=== PATIENT | male | born 1955 | race Caucasian/White ===

== ENCOUNTER → 2017-03-15 | Day surgery (SDC) | payer BC ==
[~2017-03-15] VITALS: Ht 185.4 cm; Wt 109.0 kg
[~2017-03-15] MED LIST: AMIO200T4 PO; APIX1TAB3 PO; CARV25TA PO; LISI-725 PO; MELA1TAB5 PO; MGNG500 PO; SUCR1TAB29 PO
[2017-03-15 14:39] VITALS: BP 146/102; PULSE 95; TEMP 36.7; O2SAT 98; Ht 185.4 cm; Wt 109.0 kg
[2017-03-15 15:11] VITALS: BP 156/106; PULSE 92; O2SAT 100
[2017-03-15 15:16] VITALS: BP 115/78; PULSE 92; O2SAT 100
[2017-03-15 15:20] VITALS: BP 121/77; PULSE 92; O2SAT 98
[2017-03-15 16:15] VITALS: BP 148/96; PULSE 54; O2SAT 96
--- NOTE | 2017-03-15 16:45 | Discharge Instructions ---
Discharge Instructions Date of Service March 15, 2017. Admission Reason for Admission: A-Fib *Dr Black Doing* *Anethesia Notified* Discharge Discharge Diagnosis / Problem: CVN Discharge Goals Goal(s): Improve disease control Activity Recommendations Activity Limitations: resume your previous activity . Instructions / Follow-Up Instructions / Follow-Up ACTIVITY RECOMMENDATIONS: * May resume driving tomorrow. SPECIAL CARE: * May apply burn ointment for skin irritation. * Please contact physician for any lightheadedness, dizziness or palpitations. Current Hospital Diet Patient's current hospital diet: Discharge Diet Recommended Diet: Regular Diet Pending Studies Studies pending at discharge: no Medical Emergencies . Who to Call and When: Medical Emergencies: If at any time you feel your situation is an emergency, please call 911 immediately. . Non-Emergent Contact Non-Emergency issues call your: Primary Care Provider . . "Provider Documentation" section prepared by Santhosh Timmons. . VTE Core Measure Inpt VTE Proph given/why not?: Other Anticoagulation
--- NOTE | 2017-03-15 17:55 | Anesthesiology Progress Note ---
Anesthesia Post Op Note Date & Time March 15, 2017 at 17:55 Vital Signs Pain Intensity: 0 Vital Signs Past 12 Hours Date Time Temp Pulse Resp B/P Pulse Ox O2 Delivery O2 Flow Rate FiO2 03/15/17 16:15 54 18 148/96 96 Room Air 03/15/17 16:00 52 18 139/88 95 Room Air 03/15/17 15:50 55 18 127/79 95 Room Air 03/15/17 15:40 57 18 128/82 95 Room Air 03/15/17 15:30 56 18 94/74 98 Room Air 03/15/17 15:20 92 18 121/77 98 Room Air 03/15/17 15:16 92 18 115/78 100 Nasal Cannula 4 03/15/17 15:11 92 18 156/106 100 Nasal Cannula 4 03/15/17 14:39 36.7 95 18 146/102 98 Room Air Notes Mental Status: alert / awake / arousable, participated in evaluation Pt Amnestic to Procedure: Yes Nausea / Vomiting: adequately controlled Pain: adequately controlled Airway Patency, RR, SpO2: stable & adequate BP & HR: stable & adequate Hydration State: stable & adequate Anesthetic Complications: no major complications apparent
--- NOTE | 2017-04-08 21:52 | OPERATIVE REPORT ---
DATE OF OPERATION: 03/18/2017 INDICATIONS FOR CARDIOVERSION: Persistent atrial fibrillation post-ablation. 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 He has tried antiarrhythmic therapy and has also tried rate control, however, ended up having ablation at [facility] about 2 weeks ago. He had an episode of atrial fibrillation lasting several hours and spontaneously converting to sinus rhythm, but has had return of his symptoms. He therefore was brought to laboratory for cardioversion in order to maintain sinus rhythm following ablation. DESCRIPTION OF PROCEDURE: After obtaining informed consent for the procedure, he was brought to the laboratory on the morning of 03/15/2017 being n.p.o. after midnight. He was identified in the laboratory, connected to the recording apparatus and anteroposterior patch electrodes were placed. He was anesthetized using propofol anesthetic delivered by the anesthesia department. Once adequate anesthesia was obtained, cardioversion was performed using a single 200 joule synchronized biphasic shock. This converted the rhythm to sinus. The patient tolerated the procedure well, awoke uneventfully from the anesthetic, was observed briefly and discharged. MAGO
== END | disposition home or self-care (01) ==
LOC: C.CATH 14:18
PROVIDERS: ATTEND Internal Medicine Clinical Cardiac Electrophysiology
DX: I48.1 Persistent atrial fibrillation (principal); E83.42 Hypomagnesemia; I10 Essential (primary) hypertension; F41.9 Anxiety disorder, unspecified; I42.8 Other cardiomyopathies; Z79.01 Long term (current) use of anticoagulants; Z82.49 Family history of ischemic heart disease and other diseases of the circulatory system; Z81.1 Family history of alcohol abuse and dependence

== ENCOUNTER → 2018-02-24 | Outpatient (CLI) | payer BC ==
[~2018-02-24] MED LIST changes: -CARV25TA PO
--- NOTE | 2018-02-24 08:35 | DIAGNOSTIC IMAGING REPORT ---
ULTRASOUND OF THE ABDOMINAL AORTA CLINICAL HISTORY: Aneurysm screening. COMPARISON STUDY: No priors. TECHNIQUE: Multiple francis scale, color Doppler, and spectral Doppler sonograms of the abdominal aorta and iliac arteries are performed. Images are reviewed in the transverse and longitudinal planes. FINDINGS: There is mild to moderate atherosclerotic calcification and irregularity noted throughout the abdominal aorta. 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 The mid abdominal aorta measures 2.7 x 2.9 cm and the distal abdominal aorta is ectatic measuring 2.8 x 2.9 cm. The right common iliac artery measures up to 1.5 cm and the left common iliac artery measures up to 1.4 cm. Normal flow and spectral Doppler waveforms are seen within the aorta and pelvic arteries. IMPRESSION: 1. 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 2. There is ectasia of the mid to distal abdominal aorta as well as the iliac arteries. Electronically signed by: John Cabrera M.D. 02/24/2018 8:33 AM Dictated Date/Time: 02/24/2018 8:21 AM
== END | disposition home or self-care (01) ==
LOC: C.ULTRBC 07:32
PROVIDERS: ATTEND Internal Medicine Geriatric Medicine
DX: Z00.00 Encounter for general adult medical examination without abnormal findings (principal); I71.4 Abdominal aortic aneurysm, without rupture